=== PATIENT | female | born 1965 | race Asian ===

== ENCOUNTER 2016-08-17 14:46 | Emergency (ER) | payer OTHER ==
[~2016-08-17] VITALS: Ht 157.5 cm; Wt 79.0 kg
[2016-08-17 15:03] VITALS: BP 145/97; PULSE 89; RESP 16; TEMP 99.2; O2SAT 98
--- NOTE | 2016-08-17 15:28 | PD ---
HPI Chief Complaint: Cold / Flu Symptoms Time Seen by Provider: 15:23 Travel History International Travel<30 days: No Contact w/Intl Traveler<30days: No Traveled to known affect area: No History of Present Illness HPI Patient is an otherwise healthy 51-year-old female presenting with cough and sore throat for 2 days. She has pain with swallowing but denies difficulty swelling or breathing through the mouth. He does have dyspnea however it is related to the cough and intermittent wheezing. She denies chest pain and chest tightness. She had pneumonia several years prior and does think this feels similar. She's had some body aches but denies fever and chills. She denies abdominal pain, nausea and vomiting. She denies any eye, nose or ear symptoms. She's had to pneumonia vaccines and received her influenza vaccine this year. She denies a history of asthma/COPD and does not use tobacco. PFSH Past Medical History Medical History: Denies Significant Hx ?: Not Past Surgical History Surgical History: No Previous Surgery Social History Alcohol Use: No Tobacco Use: No Substance Use: No Allergies-Medications (Allergen,Severity, Reaction): Coded Allergies: No Known Allergies (Unverified , 08/17/16) Reported Meds & Prescriptions Reported Meds & Active Scripts Active Proair Hfa 8.5 GM Inh (Albuterol Sulfate) 90 Mcg/Act Aer 2 Puff INH Q4-6H PRN 108 mcg/actuation Azithromycin 250 Mg Tab 250 Mg PO DIRECTED Take 2 tabs (500 mg) on day 1 then 1 tab daily x 4 days. Review of Systems Except as stated in HPI: all other systems reviewed are Neg Physical Exam Narrative GENERAL: Well-developed and well-nourished adult female in no acute distress. SKIN: Warm and dry. Good turgor without tenting. HEAD: Normocephalic and atraumatic. EYES: PERRL bilaterally, 5mm. EOMI bilaterally. No injection or icterus present. No proptosis. Lids without edema or erythema. ENT: Nasal mucosa pink and moist without discharge, septum intact and midline. Buccal mucosa pink and moist. Oropharynx reveals bilateral tonsillar erythema without tonsillar hypertrophy, masses, swelling, asymmetry and exudates. Uvula midline and airway patent. NECK: Supple, no meningeal signs. Trachea midline, no JVD. No cervical or facial lymphadenopathy. CARDIOVASCULAR: Regular rate and rhythm without murmurs, rubs, clicks or gallops. Radial and posterior tibial pulses 2+ bilaterally. No pedal edema. RESPIRATORY: Crackles auscultated in the right mid to lower lung arnett without rhonchi or wheezing. Symmetrical rise and fall, no distress or use of accessory muscles. Patient speaks in full sentences. No stridor, tripoding or drooling. GASTROINTESTINAL: Non-tender, non-distended. Normal bowel sounds all 4 quadrants. No masses or organomegaly present. MUSCULOSKELETAL: No gait disturbances. Patient freely moving all four extremities spontaneously. Extremities without clubbing, cyanosis, or edema. No obvious deformities. NEUROLOGIC: CN II-XII grossly intact. Awake and alert. Motor grossly within normal limits. Normal speech. Data Data Last Documented VS Vital Signs Date Time Temp Pulse Resp B/P Pulse Ox O2 Delivery O2 Flow Rate FiO2 08/17/16 15:03 99.2 89 16 145/97 98 Orders Complete Blood Count With Diff (08/17/16 15:22) Basic Metabolic Panel (Bmp) (08/17/16 15:22) Group A Rapid Strep Screen (08/17/16 15:22) Influenzae A/B Antigen (08/17/16 15:22) Chest, Pa & Lat (08/17/16 15:22) Ecg Monitoring (08/17/16 15:22) Iv Access Insert/Monitor (08/17/16 15:22) Oximetry (08/17/16 15:22) Albuterol-Ipratropium Neb (Duoneb Neb) (08/17/16 15:30) Strep Culture (Group A) (08/17/16 15:40) Labs Laboratory Tests Test 08/17/16 15:40 White Blood Count 7.8 TH/MM3 Red Blood Count 5.13 MIL/MM3 Hemoglobin 12.5 GM/DL Hematocrit 37.8 % Mean Corpuscular Volume 73.8 FL Mean Corpuscular Hemoglobin 24.3 PG Mean Corpuscular Hemoglobin 32.9 % Concent Red Cell Distribution Width 12.6 % Platelet Count 356 TH/MM3 Mean Platelet Volume 6.6 FL Neutrophils (%) (Auto) 65.7 % Lymphocytes (%) (Auto) 26.0 % Monocytes (%) (Auto) 5.1 % Eosinophils (%) (Auto) 2.6 % Basophils (%) (Auto) 0.6 % Neutrophils # (Auto) 5.2 TH/MM3 Lymphocytes # (Auto) 2.0 TH/MM3 Monocytes # (Auto) 0.4 TH/MM3 Eosinophils # (Auto) 0.2 TH/MM3 Basophils # (Auto) 0.0 TH/MM3 CBC Comment DIFF FINAL Differential Comment AUTO DIFF CONFIRMED Sodium Level 142 MEQ/L Potassium Level 3.3 MEQ/L Chloride Level 104 MEQ/L Carbon Dioxide Level 28.4 MEQ/L Anion Gap 10 MEQ/L Blood Urea Nitrogen 9 MG/DL Creatinine 0.59 MG/DL Estimat Glomerular Filtration 107 ML/MIN Rate Random Glucose 79 MG/DL Calcium Level 8.3 MG/DL MDM Medical Decision Making Medical Screen Exam Complete: Yes Emergency Medical Condition: Yes Interpretation(s) Last 24 hours Impressions Chest X-Ray 08/17/16 1522 Signed Impressions: Service Date/Time: Wednesday, August 17, 2016 15:52 - CONCLUSION: Minimal prominence basilar interstitium representing either minimal early infiltrate or atelectasis Wilfredo Mcdaniel MD Differential Diagnosis Pneumonia versus bronchitis versus viral syndrome versus pharyngitis Narrative Course Patient is an otherwise healthy 51-year-old female who is afebrile and nontoxic appearing sitting sore throat and cough for 2 days. Oxygen saturation is 98% on room air patient has no increased work of breathing however does have crackles in the right mid to lower lung arnett. She had pneumonia several years ago and states that this does feel similar. Patient was given albuterol inhaler and ordered chest x-ray, CBC, metabolic panel, rapid flu and strep testing. Rapid flu negative. CBC shows MCV 73.8. No leukocytosis or neutrophilia. Metabolic panel shows potassium 3.3, patient was given 20 mEq orally for replacement. Calcium 8.3. Chest x-ray shows minimal prominence of the basilar interstitial murmur presenting either early minimal infiltrate or atelectasis. Given that there are crackles in the patient reports having symptoms similar to previous pneumonia this is the likely etiology. Given the patient is otherwise well and has only minimal symptoms I believe patient is appropriate for outpatient treatment with azithromycin. She felt as if he is helps we'll prescribe prescription of albuterol. Of note the patient speaks [place] primarily has minimal Irish. She does frequently understand our discussion and I offered for translation services but she declined insisting on using her daughter. I explained to the patient and her daughter that she develops fever, chest pain or acute worsening symptoms to return. See discharge paperwork for further instructions. The plan was discussed with the patient who acknowledged their understanding and agreement. Reinforced the follow-up with primary care is critically important. Patient instructed on emergent conditions that should prompt return to ED. Diagnosis Primary Impression: Pneumonia Qualified Code: J18.1 - Pneumonia of right lower lobe due to infectious organism Patient Instructions: Community Acquired Pneumonia (ED), General Instructions Additional Instructions: Take medication as prescribed OTC Mucinex, cough suppressants, and decongestants as needed OTC Tylenol or Ibuprofen for fever and discomfort Drink lots of fluid to help clear mucous/drainage and stay hydrated Follow up with PCP in 2 days Return to the ED for any acute worsening of symptoms including fever, worsening dyspnea, chest pain Med/Other Pt SpecificInfo: Prescription(s) given Scripts Albuterol 8.5 GM Inh (Proair Hfa 8.5 GM Inh)90 Mcg/Act Aer2 Puff INH Q4-6H PRN ( SHORTNESS OF BREATH) #1 INHALER 108 mcg/actuation Prov:Jessica Lim MD 08/17/16 Azithromycin 250 Mg [id number] Mg PO DIRECTED #6 TAB Take 2 tabs (500 mg) on day 1 then 1 tab daily x 4 days. Prov:Jessica Lim MD 08/17/16 Disposition: 01 DISCHARGE HOME Condition: Stable Joel Sanchez III Aug 17, 2016 15:28
[2016-08-17] MEDS ORDERED: RESP: ALBUTEROL 2.5 MG/IPRATROPIUM 0.5 MG NEB (SCH) INH ONE (15:30)
[2016-08-17 15:52] LABS: AUTOMATED NEUTROPHIL # 5.2 TH/MM3 (1.8-7.7); BASOPHIL % 0.6 % (0.0-2.0); EOSINOPHIL # 0.2 TH/MM3 (0-0.4); EOSINOPHIL % 2.6 % (0.0-4.0); HEMATOCRIT 37.8 % (35.0-46.0); MEAN CELL VOLUME 73.8 FL (80.0-100.0); MEAN CORPUSCULAR HEMOGLOBIN 24.3 PG (27.0-34.0); MEAN CORPUSCULAR HGB CONC 32.9 % (32.0-36.0); MONO % 5.1 % (0.0-8.0); NEUT % 65.7 % (16.0-70.0); PLATELET COUNT 356 TH/MM3 (150-450); RED BLOOD COUNT 5.13 MIL/MM3 (4.00-5.30); RED CELL DISTRIBUTION WIDTH 12.6 % (11.6-17.2); WHITE BLOOD COUNT 7.8 TH/MM3 (4.0-11.0)
[2016-08-17 15:56] LABS: HEMO FLAGS DIFF FINAL
--- NOTE | 2016-08-17 16:05 | RADHPO ---
EXAM DATE/TIME: 08/17/2016 15:52 [facility] COMPARISON: No previous studies available for comparison. INDICATIONS : Cough, fever MEDICAL HISTORY : None. SURGICAL HISTORY : None. ENCOUNTER: Initial ACUITY: 2 days PAIN SCORE: 0/10 LOCATION: Bilateral chest FINDINGS: PA and lateral views of the chest demonstrate the lungs to be symmetrically aerated without evidence of mass or effusion. The cardiomediastinal contours are unremarkable. Osseous structures are intact . There is minimal patchy prominence of the basilar interstitium which probably represents minimal ea rly infiltrate or atelectasis CONCLUSION: Minimal prominence basilar interstitium representing either minimal early infiltrate or atelectasis Wilfredo Mcdaniel MD on August 17, 2016 at 16:03 Board Certified Radiologist. This report was verified electronically.
[2016-08-17 16:07] LABS: POTASSIUM 3.3 MEQ/L (3.5-5.1)
[2016-08-17] MEDS ORDERED: ALBUAER3 INH (16:09)
[2016-08-17] MEDS ORDERED: AZIT250T3 PO (16:09)
[2016-08-17 16:10] LABS: BICARBONATE 28.4 MEQ/L (21.0-32.0)
[2016-08-17 16:21] LABS: SCAN/DIFF AUTO DIFF CONFIRMED
[2016-08-17] MEDS ORDERED: POTASSIUM CHLORIDE 20 MEQ CONTROLLED RELEASE TAB PO ONE (16:30)
[2016-08-17 16:45] VITALS: BP 164/90
== END 2016-08-17 16:48 | disposition home or self-care (01) ==
LOC: PHEFT 14:46
DX: J18.1 Lobar pneumonia, unspecified organism (principal); J02.9 Acute pharyngitis, unspecified
CPT/HCPCS: 71020; 80048; 85025; 87081; 87804; 87880; 94664; 99283